=== PATIENT | female | born 1965 | race Caucasian/White ===

== ENCOUNTER → 2016-11-14 | Outpatient (CLI) | payer OTHER | END | disposition home or self-care (01) | LOC: PETCFH 09:24 | PROVIDERS: ATTEND Internal Medicine Endocrinology, Diabetes & Metabolism | DX: E04.2 Nontoxic multinodular goiter (principal); E83.52 Hypercalcemia | CPT/HCPCS: 78070; A9500 ==

== ENCOUNTER 2017-01-14 06:07 | Inpatient (IN) | payer OTHER ==
[~2017-01-14] VITALS: Ht 167.6 cm; Wt 94.4 kg
[~2017-01-14 06:07] MED LIST: ASPI-496 PO; CHOL500045 PO; LISI5TAB7 PO
[2017-01-14] MEDS ORDERED: LACTATED RINGERS 1,000 ML IV SCH (06:22)
[2017-01-14] MEDS ORDERED: LIDOCAINE 1%, 2ML SQ PRN (06:30)
[2017-01-14] MEDS ORDERED: MIDAZOLAM 1 MG/ML, 2ML ONE (06:35)
[2017-01-14] MEDS ORDERED: FENTANYL PF 100 MCG/2ML ONE ×2 (06:35→07:17)
[2017-01-14] MEDS ORDERED: SUCCINYLCHOLINE 20 MG/ML, 10ML ONE (07:02)
[2017-01-14] MEDS ORDERED: ONDANSETRON 2MG/ML, 2ML ONE (07:02)
[2017-01-14] MEDS ORDERED: ROCURONIUM 10 MG/ML ONE (07:02)
[2017-01-14] MEDS ORDERED: PROPOFOL 10 MG/ML, 20ML ONE (07:02)
[2017-01-14] MEDS ORDERED: DEXAMETHASONE 4 MG/ML, 1ML ONE (07:02)
[2017-01-14] MEDS ORDERED: ACETAMINOPHEN 325 MG TABLET PO PRN (08:00)
[2017-01-14] MEDS ORDERED: FENTANYL PF 100 MCG/2ML IV PRN (08:00)
[2017-01-14] MEDS ORDERED: EPHEDRINE 50 MG/ML, 1ML IVPush PRN (08:00)
[2017-01-14] MEDS ORDERED: HYDROmorphone 1 MG/ML, 1ML IV PRN (08:00)
[2017-01-14] MEDS ORDERED: OXYcodone 5 MG/5 ML ORAL.SOL UDC PO PRN (08:00)
[2017-01-14] MEDS ORDERED: PROMETHAZINE 25 MG/ML, 1ML IV PRN (08:00)
[2017-01-14] MEDS ORDERED: MEPERIDINE/PF 25MG/0.5ML IVPush PRN (08:00)
[2017-01-14] MEDS ORDERED: MIDAZOLAM 1 MG/ML, 2ML IV PRN (08:00)
[2017-01-14] MEDS ORDERED: ONDANSETRON 2MG/ML, 2ML IVPush PRN (08:00)
[2017-01-14 08:21] LABS: IOPTH BASELINE 154 pg/mL
[2017-01-14] MEDS ORDERED: OXYcodone 5 MG/5 ML ORAL.SOL UDC ONE (08:51)
[2017-01-14] MEDS ORDERED: ACETAMINOPHEN 650 MG/20.3 ML UDC ONE (08:51)
[2017-01-14] MEDS ORDERED: morphine SULFATE 10 MG/ML, 1ML IV PRN (11:00)
[2017-01-14] MEDS ORDERED: ONDANSETRON 2MG/ML, 2ML IV PRN (11:00)
[2017-01-14 13:00] VITALS: BP 100/67
[2017-01-14] MEDS: HYDROcodone/APAP 5/325 TABLET PO PRN ×2 (13:29→19:33)
[2017-01-14] MEDS: LACTATED RINGERS 1,000 ML IV SCH (13:31)
[2017-01-14 15:00] VITALS: BP 97/66
[2017-01-14 20:53] VITALS: BP 112/79
[2017-01-14] MEDS: SODIUM CHLORIDE FLUSH 10ML SYR IVF SCH (21:00)
[2017-01-15] MEDS: LACTATED RINGERS 1,000 ML IV SCH (00:20)
[2017-01-15] MEDS: HYDROcodone/APAP 5/325 TABLET PO PRN ×2 (01:49→08:00)
[2017-01-15 03:27] VITALS: BP 123/79
[2017-01-15] MEDS ORDERED: PNEUMOCOCCAL 23 VACCINE IM-VACC ONE (07:30)
[2017-01-15] MEDS ORDERED: CALCIUM CARBONATE 500 MG TAB.CHEW ONE (07:33)
[2017-01-15 07:59] VITALS: BP 130/84
[2017-01-15] MEDS: SODIUM CHLORIDE FLUSH 10ML SYR IVF SCH (09:00)
[2017-01-15] MEDS ORDERED: CALCIUM CARBONATE 500 MG TAB.CHEW PO SCH (09:00)
[2017-01-15] MEDS ORDERED: LEVO125T PO (10:04)
[2017-01-15] MEDS ORDERED: HYDR-3240 PO (10:04)
[2017-01-15] MEDS ORDERED: CALC200T3 PO (10:07)
[2017-01-15 10:28] VITALS: BP 138/89
[2017-01-15 11:15] VITALS: BP 143/87
== END 2017-01-15 11:49 | disposition home or self-care (01) | DRG 627 ==
LOC: OUT 06:07 → 4NOR 10:12 → OUT 10:47
PROVIDERS: ADMIT Surgery; ATTEND Surgery
PROC: 0GTM0ZZ Resection of Left Superior Parathyroid Gland, Open Approach (ICD-10-PCS; 2017-01-14)
PROC: 0GTK0ZZ Resection of Thyroid Gland, Open Approach (ICD-10-PCS; principal; 2017-01-14 07:00)
DX: E04.2 Nontoxic multinodular goiter (principal); I10 Essential (primary) hypertension; E21.0 Primary hyperparathyroidism; E78.00 Pure hypercholesterolemia, unspecified; F17.210 Nicotine dependence, cigarettes, uncomplicated; E21.3 Hyperparathyroidism, unspecified; E55.9 Vitamin D deficiency, unspecified; Z82.49 Family history of ischemic heart disease and other diseases of the circulatory system
CPT/HCPCS: 36415; 82040; 82310; 83970; 88305; 88307; 88331; 88333; 90732; J1100; J2250; J2405; J2704; J3010; C1760; J0330; J7120